=== PATIENT | female | born 1970 | race African-American/Black ===

== ENCOUNTER 2018-12-17 09:24 | Day surgery (SDC) | payer OTHER ==
[2018-12-14 15:51] VITALS: BMI 33.2
[2018-12-17] MEDS ORDERED: BUPIVACAINE HCL/PF 0.5% (5MG/ML) 10 ML VIAL ONE (11:18)
[2018-12-17] MEDS ORDERED: MORPHINE SULFATE 10 MG/1 ML *VIAL ONE (11:20)
[2018-12-17] MEDS ORDERED: MIDAZOLAM HCL 2 MG/2 ML SINGLE DOSE VIAL ONE ×2 (11:25→12:21)
[2018-12-17] MEDS ORDERED: DEXAMETHASONE SOD PHOSPHATE 4 MG/1 ML VIAL ONE (11:25)
[2018-12-17] MEDS ORDERED: PROPOFOL 20 ML ONE ×3 (11:25→12:31)
[2018-12-17] MEDS ORDERED: oxyCODONE HCL 5 MG TABLET PO PRN (11:44)
[2018-12-17] MEDS ORDERED: ONDANSETRON 4 MG/2 ML VIAL IVPUSH PRN (11:44)
[2018-12-17] MEDS ORDERED: LACTATED RINGERS SOLUTION 1,000 ML IV SCH (11:45)
[2018-12-17] MEDS ORDERED: ceFAZolin SODIUM 1 GM VIAL ONE (12:29)
[2018-12-17] MEDS ORDERED: ONDANSETRON 4 MG/2 ML VIAL ONE ×2 (12:29→13:37)
[2018-12-17] MEDS ORDERED: MORPHINE SULFATE/PF 10 MG/ML ML IT ONE (12:58)
[2018-12-17] MEDS ORDERED: BUPIVACAINE HCL/PF 0.5% (5MG/ML) 10 ML VIAL IJ ONE (12:58)
--- NOTE | 2018-12-17 13:55 | OP ---
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 PROCEDURE PERFORMED: Arthroscopy of the right knee with microdrilling for recruitment of stem cells for osteochondritis dissecans lesion medial femoral condyle, partial medial and lateral meniscectomy, articular cartilage shaving with chondroplasty, extensive synovectomy, extensive joint debridement. SURGEON: Rosa Alvarez MD DIE MOUNTER: None ANESTHESIA: Miriam Field MD, general anesthesia. DESCRIPTION OF PROCEDURE: The procedure consisted of the patient being brought in the operating room and gently transferred from the stretcher to the OR table with all bony prominences well padded. The right leg was prepared and draped in a sterile fashion. Patient was given intravenous antibiotics and copious irrigation throughout the procedure to minimize risk of infection. A complete risk, benefit, alternative discussion was conducted, which was inclusive of, but not limited to, infection, bleeding, , paralysis, increased pain, need for repeat surgery. Patient asked questions, understood the procedure, and desired to proceed with surgical treatment. Following sterile preparation and draping of the right leg, the leg was exsanguinated using a rubber Esmarch bandage and the tourniquet inflated to 350 mmHg. Suprapatella, medial, and lateral joint line portals were used to introduce the arthroscope and arthroscopic instruments. The knee was examined. There was noted to be hypertrophic synovium in the suprapatellar pouch. Extensive partial synovectomy was performed medial and lateral gutters without plica and loose body. Inferior surface of the patella had damage consisted with chondromalacia, and chondral shaving was performed using shaver and radiofrequency wand. The medial femoral condyle was evaluated, and there was noted to be a 1-cm osteochondritis dissecans lesion on the medial femoral condyle. This was debrided, and a 0.62-mm K-wire was used to create a microdrilling pattern to allow stem cells to be recruited to fill the cartilaginous defect. Medial meniscus was found to have a tear of the posterior horn, and this was resected using shaver and radiofrequency wand. Intercondylar region was noted to have extensive joint debris, and extensive joint debridement was performed. Anterior and posterior cruciate ligaments were found to be intact. Lateral meniscus was found to have a tear of the posterior horn, and this was resected using shaver and radiofrequency wand. The knee joint was then copiously irrigated with sterile saline irrigant. The wounds were closed using 4-0 undyed Vicryl followed by Steri-Strips, Xeroform, 4 x 4's, sterile Webril, ULISES bandages, and a knee immobilizer. The tourniquet was deflated after approximately 25 minutes of tourniquet time. There were no known intraoperative complications. ROSA ALVAREZ M.D. [id number]
[2018-12-17 14:13] VITALS: TEMP 97.4
[2018-12-17 15:00] VITALS: BP 118/67; PULSE 84
== END 2018-12-17 14:45 | disposition home or self-care (01) ==
LOC: FASU 09:24
PROVIDERS: ATTEND Orthopaedic Surgery
PROC: 0SBC4ZZ Excision of Right Knee Joint, Percutaneous Endoscopic Approach (ICD-10-PCS; 2018-12-17)
PROC: 0SQC4ZZ Repair Right Knee Joint, Percutaneous Endoscopic Approach (ICD-10-PCS; 2018-12-17)
PROC: 0SBC4ZZ Excision of Right Knee Joint, Percutaneous Endoscopic Approach (ICD-10-PCS; 2018-12-17)
PROC: 0SBC4ZZ Excision of Right Knee Joint, Percutaneous Endoscopic Approach (ICD-10-PCS; principal; 2018-12-17 12:43)
DX: S83.241A Other tear of medial meniscus, current injury, right knee, initial encounter (principal); S83.281A Other tear of lateral meniscus, current injury, right knee, initial encounter; M93.261 Osteochondritis dissecans, right knee; M22.41 Chondromalacia patellae, right knee; X58.XXXA Exposure to other specified factors, initial encounter; Y93.9 Activity, unspecified; Y92.9 Unspecified place or not applicable
CPT/HCPCS: 29880; 29886; G0289; 94760